=== PATIENT | female | born 2005 | race African-American/Black ===

== ENCOUNTER 2023-02-04 09:56 | Emergency (ER) | payer MEDICAID ==
[~2023-02-04] VITALS: Ht 170 cm; Wt 90.0 kg
[~2023-02-04 09:56] MED LIST: ACET12.5 PO; ALBU8.5H2 IH; AMOX250S5 PO; CETI10TA20 PO; DEXAINTSOL PO; FLUT16SP22 NS; HYDR15SO6 PO; SULF1TAB23 PO; TETRACAINESUCKERS MT
[2023-02-04] MEDS ORDERED: HYDROcodone/APAP 5 MG/325 MG (LORTAB) TAB PO ONE (10:30)
[2023-02-04] MEDS ORDERED: IBUPROFEN 600 MG (MOTRIN) TAB PO ONE (10:30)
--- NOTE | 2023-02-04 10:35 | Diagnostic Imaging Report ---
EXAMINATION: Left foot radiograph EXAM DATE: 02/04/2023 10:29 AM COMPARISON: None available. HISTORY: foot pain TECHNIQUE: 3 views FINDINGS: There is no acute fracture, dislocation, or destructive osseous process. The joint spaces are normal. The soft tissues are normal. IMPRESSION: 1. No acute osseous abnormality. Dictated by: Dictated on workstation # [id number]
[2023-02-04] MEDS ORDERED: ACHD5005 PO (11:07)
[2023-02-04] MEDS ORDERED: IBUP-1773 PO (11:07)
--- NOTE | 2023-02-04 11:08 | ED Lower Extremity ---
General Chief Complaint: Lower Extremity Stated Complaint: BROKEN LEFT TOE Nursing Triage Note: PT SENT FROM [facility], STATES DROPPED 45#WT ON L GREAT TOE AREA. PT HAS OPEN WOUND NOTED ON FOOT. PT RATES PAIN 04/03. Source: patient, RN/MD Exam Limitations: no limitations History of Present Illness Date Seen by Provider: Feb 04, 2023 Time Seen by Provider: 10:05 Initial Comments 17-year-old female with no pertinent past medical history coming in due to left toe pain as a referral from urgent care. He dropped a 45 pound weight on it earlier today with a very thin shoe on. Had immediate pain in her left big toe. They were concerned for potential open fracture at the urgent care so referred her here. LMP was just under 2 weeks ago. Allergies and Home Medications Allergies Coded Allergies: No Known Drug Allergies (Unverified , 10/13/10) Patient Home Medication List Home Medication List Reviewed: Yes Albuterol (Proair Hfa) 8.5 Gm Hfa.aer.ad, 1 PUFF IH PRN, (Reported) Entered as Reported by: MAYANK TUCKER on 03/21/15 1425 Amoxicillin (Amoxicillin) 250 Mg/5 Ml Susp.recon, 1 TSP PO BID Prescribed by: KELSEY CORREIA on 03/23/15 0950 Dexamethasone (Decadron Intensol Oral Solution (Repackaging)) 1 Mg/1 Ml [place], 2 TSP PO DAILY PRN for PAIN Prescribed by: KELSEY CORREIA on 03/23/15 0950 Hydrocodone Bit/Acetaminophen (Lortab 7.5-325 Mg/15 Ml Udc) 15 Ml Solution, 1-2 TSP PO Q4H Prescribed by: KELSEY CORREIA on 03/23/15 0950 Tetracaine (Tetracaine Suckers) Sucker Ea, 1 EA MT UD PRN for PAIN Prescribed by: KELSEY CORREIA on 03/23/15 0950 Review of Systems Constitutional: No fever EENTM: no symptoms reported Respiratory: no symptoms reported Cardiovascular: no symptoms reported Gastrointestinal: no symptoms reported Genitourinary: no symptoms reported Musculoskeletal: see HPI Skin: no symptoms reported Psychiatric/Neurological: No Symptoms Reported Past Mmjdsgk-Vbtcxw-Pndxyx Hx Patient Social History Tobacco Use?: No Past Medical History Surgeries: No Asthma HIV/AIDS: No Tonsilitis Loss of Vision: Denies Hearing Impairment: Denies Adverse Reaction/Blood Tranf: No Physical Exam Vital Signs Vital Signs - First Documented 02/04/23 10:05 Temp 36.7 Pulse 85 Resp 18 B/P (MAP) 146/60 (88) Pulse Ox 97 Capillary Refill : Less Than 3 Seconds Height, Weight, BMI Height: 5'2.00" Weight: 156lbs. oz. 70.751438lm; 31.00 BMI Method:Stated General Appearance: WD/WN, no apparent distress HEENT: PERRL/EOMI, normal ENT inspection, pharynx normal Neck: non-tender, full range of motion, supple, normal inspection Cardiovascular: regular rate, rhythm, no edema, no murmur Respiratory: chest non-tender, lungs clear, normal breath sounds, no resp iratory distress, no accessory muscle use Gastrointestinal: normal bowel sounds, non tender, soft; No distended, No guarding, No rebound Hips: bilateral hip non-tender, bilateral hip normal inspection, bilateral hip normal range of motion, bilateral hip no evidence of injury Legs: bilateral leg non-tender, bilateral leg normal inspection, bilateral leg normal range of motion, bilateral leg no evidence of injury Ankles: bilateral ankle non-tender, bilateral ankle normal inspection, bilateral ankle normal range of motion, bilateral ankle no evidence of injury Feet: left foot other (Superficial abrasion to the dorsal aspect of the left great toe, tender more on the distal tuft) Neurologic/Tendon: normal sensation, normal motor functions, normal tendon functions Neurologic/Psychiatric: no motor/sensory deficits, alert, normal mood/affect Skin: normal color, warm/dry Progress/Results/Core Measures Results/Orders My Orders Orders - MAHIN FAIR MD Foot, Left, 3 Views (02/04/23 10:20) Hydrocodone/Apap 5/325 Tablet (Lortab 5 (02/04/23 10:30) Ibuprofen Tablet (Motrin Tablet) (02/04/23 10:30) Medications Given in ED Current Medications Medications Dose Ordered Sig/Dylan Route Start Time Stop Time Status Last Admin Dose Admin Acetaminophen/ Hydrocodone Bitart 1 ea ONCE ONCE PO 02/04/23 10:30 02/04/23 10:31 DC 02/04/23 10:35 1 EA Ibuprofen 600 mg ONCE ONCE PO 02/04/23 10:30 02/04/23 10:31 DC 02/04/23 10:35 600 MG Vital Signs/I&O 02/04/23 10:05 Temp 36.7 Pulse 85 Resp 18 B/P (MAP) 146/60 (88) Pulse Ox 97 Blood Pressure Mean: 88 Progress Progress Note : Progress Note 17-year-old female with above history coming in due to left big toe pain. ABCs were intact and vitals were stable on presentation. Tetanus up-to-date within the past 5 years. X-ray ordered and interpreted by me showing distal tuft fracture which is mildly displaced, the fracture is separate from where she has the abrasion on her toe and this is not an open fracture. She was given an hydrocodone here for pain and we will send a prescription as well and give her a postop shoe. She should follow-up with orthopedics as an outpatient. Diagnostic Imaging Diagonstic Imaging: Xray (foot) Comments [facility], [place] NAME: [facility] REC#: [id number] PT STATUS: REG ER : 2005 PHYSICIAN: MAHIN FAIR MD ADMIT DATE: 02/04/23/ER Draft Date of Exam:02/04/23 FOOT, LEFT, 3 VIEWS EXAMINATION: Left foot radiograph EXAM DATE: 02/04/2023 10:29 AM COMPARISON: None available. HISTORY: foot pain TECHNIQUE: 3 views FINDINGS: There is no acute fracture, dislocation, or destructive osseous process. The joint spaces are normal. The soft tissues are normal. IMPRESSION: 1. No acute osseous abnormality. Dictated on workstation # [id number] Dict: 02/04/23 1029 Trans: 02/04/23 1034 [facility] [id number] Interpreted by: MAHNAZ OBRIEN DO Electronically signed by: Departure Impression Primary Impression: Fractured great toe Qualified Codes: S92.422A - Displaced fracture of distal phalanx of left great toe, initial encounter for closed fracture Disposition: HOME, SELF-CARE Condition: Stable Departure-Patient Inst. Decision time for Depature: 11:10 Referrals: ESHA REZA APRN (PCP) Primary Care Physician JHOAN HARKINS MD Patient Instructions: Toe Fracture ED Add. Discharge Instructions: Fortunately just the end of your toe is broken, it is not broken where the cut is. The cut is also more superficial and this is not an open fracture, therefore you do not need antibiotics. Take the prescription ibuprofen as needed for pain, if you have pain on top of that, you can take the hydrocodone. Keep the postoperative shoe in place until you follow-up with orthopedics. Dr. Harkins's number is in this paperwork for you to schedule an appointment. Scripts Hydrocodone/Acetaminophen (Hydrocodone-Acetamin 5-325 mg) 5 Mg-325 Mg Tablet 1 TAB PO Q6H PRN for PAIN-MODERATE TO SEVERE for 3 Days, #12 TAB Prov: MAHIN FAIR MD 02/04/23 Ibuprofen (Ibuprofen) 600 Mg Tablet 600 MG PO Q6H for 5 Days, #20 TAB Prov: MAHIN FAIR MD 02/04/23 Work/School Note: Work Release Form Date Seen in the Emergency Department: Feb 04, 2023 Return to Work: Feb 05, 2023 Restrictions: No Restrictions MAHIN FAIR MD Feb 04, 2023 11:08
[2023-02-04 11:12] VITALS: BP 146/60
== END 2023-02-04 11:15 | disposition home or self-care (01) ==
LOC: EDUNIT# 09:56 → ER 10:01
DX: S92.422A Displaced fracture of distal phalanx of left great toe, initial encounter for closed fracture (principal); W20.8XXA Other cause of strike by thrown, projected or falling object, initial encounter
CPT/HCPCS: 73630